=== PATIENT | female | born 2000 | race Caucasian/White ===

== ENCOUNTER 2021-05-22 11:17 | Emergency (ER) | payer OTHER, SELFPAY ==
--- NOTE | ~2021-05-22 | CT_ITS ---
EXAMINATION: CT abdomen pelvis wo con DATE: 05/22/2021 13:46 INDICATION: Hematuria. Dysuria. TECHNIQUE: Computed tomography (CT) of the abdomen and pelvis was performed without intravenous contr ast. Automated exposure control and iterative reconstruction technique were employed. The dose-length product was 236.50 mGy-cm. COMPARISON: None. FINDINGS: The visualized portions of the lung bases are clear without pneumonia or pleural effusion. The heart size is normal. No pericardial effusion. The liver, spleen, pancreas, adrenal glands, and k idneys are normal. There is no urolithiasis. There is an intrauterine device in expected position. Th ere is a dominant follicle in right ovary. There are no dilated loops of bowel. The appendix is marilu l. There are no pathologically enlarged lymph nodes. There is no free intraperitoneal fluid. The bone s are unremarkable. IMPRESSION: 1. No urolithiasis. Reviewed, dictated and finalized at location B. IMPRESSION: 1. No urolithiasis.
[2021-05-22 11:47] VITALS: BP 133/77; PULSE 90; RESP 16; TEMP 37; O2SAT 100
[2021-05-22 12:03] LABS: Basophils Absolute Auto 0.1 K/mm3 (0.0-0.1); Basophils Percent Auto 0.5 % (0.2-1.2); Eosinophils Absolute Auto 0.1 K/mm3 (0-0.3); Eosinophils Percent Auto 0.9 % (0-4.4); Hematocrit 41.3 % (37.0-47.0); Hemoglobin 13.3 g/dL (12.0-15.0); Immature Granulocyte Absolute 0.02 K/mm3 (0.00-0.031); Immature Granulocyte Percent A 0.2 % (0-0.5); Lymphocytes Absolute Auto 2.22 K/mm3 (0.9-3.2); Lymphocytes Percent Auto 24.2 % (18.3-44.2); Mean Corpuscular HGB Conc 32.2 g/dl (32-36); Mean Corpuscular Hemoglobin 27.1 pg (26-34); Mean Corpuscular Volume 84.3 fl (80-100); Mean Platelet Volume 9.3 fl (7.4-10.4); Monocytes Absolute Auto 0.6 K/mm3 (0.1-0.6); Monocytes Percent Auto 6.8 % (2.6-8.5); Neutrophils Absolute Auto 6.2 K/mm3 (1.3-6.7); Neutrophils Percent Auto 67.4 % (45.5-73.1); Platelet Count Result 211 k/mm3 (150-375); Red Cell Distribution Width 13.5 % (11.5-14.5); White Blood Count 9.2 K/mm3 (4.5-10.0)
[2021-05-22 12:16] LABS: Anion Gap 6 mmol/L (8-16); Blood Urea Nitrogen 11 mg/dL (7-17); Calcium 9.3 mg/dL (8.4-10.2); Carbon Dioxide 24 mmol/L (22-30); Chloride 109 mmol/L (98-107); Estimated CRCL calculation 113 ml/min; Estimated Glomerular Filt Rate > 60; Glucose 85 mg/dL (65-110); Potassium 4.1 mmol/L (3.4-5.0); Sodium 139 mmol/L (137-145)
[2021-05-22 12:59] LABS: Add Urine Microscopic? YES; Appearance Urine Cloudy (Clear); Bilirubin Urine Negative (Negative); Blood Urine 2+ (Negative); Color Urine Yellow (Yellow); Glucose Urine UA Negative (Negative); Ketones Urine Negative (Negative); Leukocyte Esterase Ur 3+ LEU/UL (Negative); Nitrate Urine Negative (Negative); Protein Urine Negative (Negative); Urobilinogen Urine Negative mg/dL (<2.0); WBC Urine 0-3 /hpf
--- NOTE | 2021-05-22 13:45 | ED.FEMALEGU ---
HPI - Female Genitourinary General Chief complaint: Urogenital-Female Stated complaint: back pain/headache/urinary stymptoms Time Seen by Provider: 05/22/21 12:45 Source: patient Mode of arrival: ambulatory Limitations: no limitations History of Present Illness HPI Narrative: This is a 21-year-old female that presents to the emergency department for flank pain present since yesterday. Associated with pressure in her bladder and urinary frequency. Also reports a mild headache. Denies fever, stiff neck, abdominal pain, vomiting, or hematuria. Related Data Allergies Allergy/AdvReac Type Severity Reaction Status Date / Time amoxicillin [From Augmentin] Allergy Unknown Verified 05/22/21 12:44 clavulanic acid Allergy Unknown Verified 05/22/21 12:44 [From Augmentin] Review of Systems Review of Systems: CONSTITUTIONAL: Denies fever GASTROINTESTINAL: Denies abdominal pain, nausea, vomiting GENITOURINARY: Denies dysuria or hematuria. MUSCULOSKELETAL: Reports back pain, joint pain, and myalgia. NEUROLOGIC: Reports headache. Denies numbness, or weakness. All systems reviewed & are unremarkable except as noted in HPI and below PMFSH Past Medical History Medical History (Updated 05/22/21 @ 15:54 by Goldie Ham PA-C) No active medical problems Social History Social History (Updated 05/22/21 @ 13:48 by Goldie Ham PA-C) Substance use: never Exam Narrative: GENERAL: Well-appearing, well-nourished, and in no acute distress. HEAD: Normocephalic, atraumatic. EYES: EOMI. ENT: Nares clear, no rhinorrhea or epistaxis. Mucous membranes moist. Oropharynx without tonsillar hypertrophy exudate or other lesions. Bilateral TMs pearly peck non-bulging NECK: Supple. No adenopathy or masses. CHEST: Clear to auscultation. No respiratory distress. No wheezes rales or rhonchi HEART: Regular rate and rhythm. No murmur heard. Normal peripheral pulses. ABDOMEN: Soft, nontender, nondistended, normal active bowel sounds. No CVA tenderness EXTREMITIES: Normal range of motion. No edema. SKIN: Warm, dry, no rash. NEURO: No focal deficits. Alert and oriented x3. PSYCH: Normal mood and affect Course Vital Signs Vital signs: Vital Signs Temperature 98.6 F 05/22/21 11:47 Pulse Rate 90 05/22/21 11:47 Respiratory Rate 16 05/22/21 11:47 Blood Pressure 133/77 05/22/21 11:47 Pulse Oximetry 100 05/22/21 11:47 Temperature 98.6 F 05/22/21 11:47 Pulse Rate 90 05/22/21 11:47 Respiratory Rate 16 05/22/21 11:47 Blood Pressure 133/77 05/22/21 11:47 Pulse Oximetry 100 05/22/21 11:47 MDM - Female Genitourinary MDM Narrative Medical decision making narrative: This is a 21-year-old female that presents the emergency department for flank pain and urinary frequency. She is afebrile and nontoxic-appearing. CBC is without leukocytosis. Metabolic panel without concerning findings. UA does show 3+ leuk esterase, but no white blood cells. This will be sent for culture. Bedside test is negative. CT scan abdomen pelvis is without evidence of urolithiasis or acute intra-abdominal/pelvic process. Patient and family updated on case findings. She is to follow-up with primary care doctor. She was given warnings to return to the ER Lab Data Attestation: I reviewed the patient's lab results. Result diagrams: 05/22/21 11:53 05/22/21 11:53 Labs: Lab Results 05/22/21 05/22/21 05/22/21 Range/Units 11:53 11:53 12:19 WBC 9.2 (4.5-10.0) K/mm3 RBC 4.90 (4.2-5.4) M/mm3 Hgb 13.3 (12.0-15.0) g/dL Hct 41.3 (37.0-47.0) % MCV 84.3 (80-100) fl MCH 27.1 (26-34) pg MCHC 32.2 (32-36) g/dl RDW 13.5 (11.5-14.5) % Plt Count 211 (150-375) k/mm3 MPV 9.3 (7.4-10.4) fl Immature Gran % (Auto) 0.2 (0-0.5) % Neut % (Auto) 67.4 (45.5-73.1) % Lymph % (Auto) 24.2 (18.3-44.2) % [place] % (Auto) 6.8 (2.6-8.5) % Eos % (Auto) 0.9
[2021-05-22] MEDS: SODIUM CHLORIDE 0.9% IV 500 ML 999 ML IV CONT (13:57)
== END 2021-05-22 16:05 | disposition home or self-care (01) ==
PROVIDERS: Emergency Provider Emergency Medicine
DX: R35.0 Frequency of micturition (principal)
CPT/HCPCS: 36415; 74176; 80048; 81001; 81025; 85025; 87077; 87086; 87088; 87186; 96361; 96365; 99284; J0131; J7040

== ENCOUNTER 2024-01-14 10:54 | Outpatient (CLI) | payer OTHER, SELFPAY ==
--- NOTE | 2024-01-14 11:27 | PC.NURSE ---
Dr Earl on unit, tracing, labs and BP reviewed. Orders for [place] and tylenol. OK to dc home if better.
[2024-01-14 11:29] LABS: Basophils Percent Auto 0.2 % (0.2-1.2); Eosinophils Percent Auto 0.4 % (0-4.4); Hematocrit 36.3 % (37.0-47.0); Hemoglobin 11.9 g/dL (12.0-15.0); Immature Granulocyte Absolute 0.05 K/mm3 (0.00-0.031); Immature Granulocyte Percent A 0.5 % (0-0.5); Lymphocytes Absolute Auto 2.13 K/mm3 (0.9-3.2); Mean Corpuscular HGB Conc 32.8 g/dl (32-36); Mean Corpuscular Volume 85.4 fl (80-100); Mean Platelet Volume 10.1 fl (7.4-10.4); Monocytes Absolute Auto 0.6 K/mm3 (0.1-0.6); Monocytes Percent Auto 5.4 % (2.6-8.5); Neutrophils Absolute Auto 7.8 K/mm3 (1.3-6.7); Neutrophils Percent Auto 73.5 % (45.5-73.1); Platelet Count Result 204 k/mm3 (150-375); Red Blood Count 4.25 M/mm3 (4.2-5.4); Red Cell Distribution Width 14.2 % (11.5-14.5); White Blood Count 10.7 K/mm3 (4.5-10.0)
[2024-01-14 11:31] VITALS: BP 114/72; PULSE 121
[2024-01-14 11:34] LABS: Creatinine Urine 100.7 mg/dL; Total Protein Urine Random 12 mg/dL; Ur Ttl Prot Creatinine Ratio 0.12 mg/mg (0-0.20)
[2024-01-14 11:40] LABS: Alanine Aminotransferase 16 U/L (6-35); Albumin Level 4.1 g/dL (3.5-5.1); Alkaline Phosphatase 249 U/L (38-126); Anion Gap 10 mmol/L (4-12); Aspartate Amino Transferase 18 U/L (14-36); Bilirubin,Total 0.5 mg/dL (0.2-1.3); Blood Urea Nitrogen 5 mg/dL (7-17); Carbon Dioxide 18 mmol/L (22-30); Chloride 108 mmol/L (98-107); Estimated Glomerular Filt Rate > 60; Glucose 98 mg/dL (65-110); Potassium 3.8 mmol/L (3.4-5.0); Sodium 136 mmol/L (137-145); Uric Acid 5.6 mg/dL (2.5-7.5)
--- NOTE | 2024-01-14 11:45 | PC.NURSE ---
Plan of care discussed with patient, informed of order for [place] and tylenol. Patient declining [place] and state she will just take tylenol at home. Patient confortable with being discharged home and returning if symptom get worse or for her scheduled IOL on tuesday.
[2024-01-14 11:46] VITALS: BP 105/76; PULSE 124
[2024-01-14 11:51] VITALS: BP 114/72; PULSE 121
[2024-01-14 11:54] LABS: Appearance Urine Cloudy (Clear); Bacteria Urine 3+ /hpf; Bilirubin Urine Negative (Negative); Blood Urine Negative (Negative); Color Urine Yellow (Yellow); Glucose Urine UA Negative (Negative); Ketones Urine Trace mg/dL (Negative); Leukocyte Esterase Ur 3+ LEU/UL (Negative); Need Manual Microscopic Reviewed; Nitrate Urine Negative (Negative); Non Pathogenic Casts 0-2; Protein Urine Negative (Negative); Specific Grav Ur 1.013 (1.001-1.035); Squamous Epithelial Cell Urine Many /hpf (Few); Urobilinogen Urine 0.2 mg/dL (<2.0); WBC Urine 21-50 /hpf (0-3); pH Urine 7.5 (5.0-9.0)
[2024-01-14 12:09] LABS: Add Urine Microscopic? YES
--- NOTE | 2024-01-14 13:01 | PC.NURSE ---
Dr Earl notified of contractions and negative ROM plus. Orders received.
== END 2024-01-14 11:51 | disposition home or self-care (01) ==
LOC: ANHOBOP 11:01 → ANHOBPP 11:02
PROVIDERS: Obstetrics & Gynecology Gynecology; Visit Provider Obstetrics & Gynecology
DX: O13.9 Gestational [pregnancy-induced] hypertension without significant proteinuria, unspecified trimester (principal)
CPT/HCPCS: 36415; 59025; 80053; 81001; 82570; 84156; 84550; 85025; 87086; 87088; 99199

== ENCOUNTER 2024-01-17 04:39 | Inpatient (IN) | payer OTHER, MEDICAID, SELFPAY ==
[2024-01-17] VITALS (131 sets, daily range): BP systolic 69–147; BP diastolic 29–111; PULSE 77–179; RESP 16; TEMP 36.1–37.4; O2SAT 83–100
[2024-01-17 06:17] LABS: Basophils Percent Auto 0.3 % (0.2-1.2); Eosinophils Percent Auto 0.3 % (0-4.4); Hematocrit 34.7 % (37.0-47.0); Hemoglobin 11.4 g/dL (12.0-15.0); Immature Granulocyte Absolute 0.06 K/mm3 (0.00-0.031); Immature Granulocyte Percent A 0.5 % (0-0.5); Lymphocytes Absolute Auto 2.36 K/mm3 (0.9-3.2); Lymphocytes Percent Auto 21.6 % (18.3-44.2); Mean Corpuscular HGB Conc 32.9 g/dl (32-36); Mean Corpuscular Volume 85.3 fl (80-100); Mean Platelet Volume 10.1 fl (7.4-10.4); Monocytes Absolute Auto 0.8 K/mm3 (0.1-0.6); Monocytes Percent Auto 6.9 % (2.6-8.5); Neutrophils Absolute Auto 7.7 K/mm3 (1.3-6.7); Neutrophils Percent Auto 70.4 % (45.5-73.1); Platelet Count Result 184 k/mm3 (150-375); Red Blood Count 4.07 M/mm3 (4.2-5.4); Red Cell Distribution Width 14.3 % (11.5-14.5); White Blood Count 10.9 K/mm3 (4.5-10.0)
[2024-01-17] MEDS: LACTATED RINGERS 1,000 ML 125 ML IV CONT ×2 (06:23→14:10)
[2024-01-17] MEDS: OXYTOCIN 30 UNITS/NS 500 ML 30 UNITS/500 ML BAG 6 UNITS IV CONT (06:24)
[2024-01-17] MEDS: ACETAMINOPHEN 500 MG TABLET 1000 MG PO (07:45)
--- NOTE | 2024-01-17 08:44 | PM.IMHP ---
H&P: HPI History of Present Illness Date/Time: 01/17/24 08:44 Chief Complaint: Here for induction of labor. Narrative: 23 y/o G1 at 39 3/7 weeks here for scheduled induction of labor. GBS neg. Review of Systems Review of Systems: All systems reviewed & are unremarkable except as noted in HPI and below PMFSH Past Medical History Medical History Anxiety Encounter for insertion of progestin-releasing intrauterine contraceptive device (IUD) Encounter for removal of intrauterine contraceptive device No active medical problems Surgical History Surgical History H/O eye surgery tear duct recontruction H/O gynecological procedure 03/16/23 removal of IUD Family History Family History Mother Breast cancer Social History Social History Smoking status: Never smoker Alcohol intake: never Substance use: never Lack of Transportation: No Lack of Food: Never True Current Housing: I Have Housing Concerned About Future Housing: No Difficulty Paying Gas/Electric Bills: No Difficulty Paying for Meds: No Currently Unemployed: No Education: Associate Degree Difficulty w/ Childcare or Family Care: No Living arrangements: other Additional living arrangements comments: spouse Occupation/Education: student Gender identity (if verbalized by the patient): Female Sexual Orientation (if Verbalized by the Patient): Straight or Heterosexual Spiritual care concerns: No Meds Home Medications and Allergies Home Medications Medication Instructions Recorded Confirmed Type metoclopramide HCl 5 mg tablet 5 mg PO DAILY #30 tabs 06/02/23 01/17/24 Rx (Reglan) Allergies Allergy/AdvReac Type Severity Reaction Status Date / Time amoxicillin [From Augmentin] Allergy Intermediate Rash Verified 12/29/23 12:22 clavulanic acid Allergy Intermediate Rash Verified 12/29/23 12:22 [From Augmentin] Vital Signs Vital Signs - 24 hr 01/17/24 06:30 01/17/24 07:00 01/17/24 07:30 Temperature 36.6 C Pulse Rate 97 111 H 109 H Blood Pressure 109/71 106/56 L 100/62 01/17/24 08:00 Temperature Pulse Rate 103 H Blood Pressure 100/53 L Exam Const: Orientation/consciousness: patient oriented x3 Other: Well-developed, well-nourished female in no acute distress. Neck: Thyroid: thyroid normal Lymphatic: no lymphadenopathy noted (in neck, axilla or inguinal nodes) Resp: Effort & Inspection: normal respiratory effort Auscultation: clear to auscultation bilaterally Cardio: Rate: regular rate Rhythm: regular rhythm Heart sounds: S1 normal heart sound present and S2 normal heart sound present GI: Other: ABD: Soft, nontender, nondistended, gravid. NST reactive. TOCO: irregular contractions. No guarding or rebound tenderness. No hepatosplenomegaly. : General: Yes no CVA tenderness Other: Cervix 4/50/-2. AROM with clear fluid. IUPC placed. Vertex. Back/Spine/Pelvis: Back: no CVA tenderness Skin: General skin exam: normal color and no rashes or lesions noted Neuro: General: patient oriented x3 Extrem: Other: Extremities: nontender with no edema Psych: Mental Status: mental status grossly normal Affect: normal affect H&P: Results Labs Labs: Short CBC 01/17/24 Range/Units 04:56 WBC 10.9 H (4.5-10.0) K/mm3 Hgb 11.4 L (12.0-15.0) g/dL Hct 34.7 L (37.0-47.0) % Plt Count 184 (150-375) k/mm3 Assessment and Plan Assessment and plan (1) Term : Code(s): Z34.90 - Encounter for supervision of normal , unspecified, unspecified trimester Status: Acute Assessment and Plan: A: IUP at 39 3/7 weeks here desiring induction of labor. P: Oxytocin. Anticipate .
--- NOTE | 2024-01-17 10:38 | WPDANESEPP ---
Anes - Eval Pre Procedure Procedure: labor Epidural Date/Time: 01/17/24 10:38 Surgeon: Ivana Preop Diagnosis: Pain during labor Pre Op Diagnosis: IOL Patient Data Age: 23 Gender: F Height: Weight: Last Vital Signs Temp 36.2 C L 01/17/24 09:30 Pulse 111 H 01/17/24 10:30 BP 102/60 01/17/24 10:30 Pulse Ox 100 01/17/24 10:34 Allergies Allergy/AdvReac Type Severity Reaction Status Date / Time amoxicillin [From Augmentin] Allergy Intermediate Rash Verified 12/29/23 12:22 clavulanic acid Allergy Intermediate Rash Verified 12/29/23 12:22 [From Augmentin] Home Medications Medication Instructions Recorded Confirmed Type metoclopramide HCl 5 mg tablet 5 mg PO DAILY #30 tabs 06/02/23 01/17/24 Rx (Reglan) Laboratory Tests 01/17/24 04:56 WBC 10.9 H K/mm3 (4.5-10.0) RBC 4.07 L M/mm3 (4.2-5.4) Hgb 11.4 L g/dL (12.0-15.0) Hct 34.7 L % (37.0-47.0) MCV 85.3 fl (80-100) MCH 28.0 pg (26-34) MCHC 32.9 g/dl (32-36) RDW 14.3 % (11.5-14.5) Plt Count 184 k/mm3 (150-375) MPV 10.1 fl (7.4-10.4) Immature Gran % (Auto) 0.5 % (0-0.5) Neut % (Auto) 70.4 % (45.5-73.1) Lymph % (Auto) 21.6 % (18.3-44.2) [place] % (Auto) 6.9 % (2.6-8.5) Eos % (Auto) 0.3 % (0-4.4) Baso % (Auto) 0.3 % (0.2-1.2) Lymph # (Auto) 2.36 K/mm3 (0.9-3.2) [place] # (Auto) 0.8 H K/mm3 (0.1-0.6) Eos # (Auto) 0.0 K/mm3 (0-0.3) Baso # (Auto) 0.0 K/mm3 (0.0-0.1) Abs Immat Gran (auto) 0.06 H K/mm3 (0.00-0.031) Absolute Neuts (auto) 7.7 H K/mm3 (1.3-6.7) Absolute Nucleated RBC 0.000 K/mm3 (0.0-0.012) Nucleated RBC % 0.0 % (0.0-0.2) RPR Pending Blood Type O Positive Antibody Screen Negative Patient hx anesthesia problems: none Family hx anesthesia problems: none Results Review: All pre-operative results and documents have been reviewed as part of the pre-operative evaluation. [facility] Past Medical History Medical History Anxiety Encounter for insertion of progestin-releasing intrauterine contraceptive device (IUD) Encounter for removal of intrauterine contraceptive device No active medical problems Surgical History Surgical History H/O eye surgery tear duct recontruction H/O gynecological procedure 03/16/23 removal of IUD Family History Family History Mother Breast cancer Social History Social History Smoking status: Never smoker Alcohol intake: never Substance use: never Lack of Transportation: No Lack of Food: Never True Current Housing: I Have Housing Concerned About Future Housing: No Difficulty Paying Gas/Electric Bills: No Difficulty Paying for Meds: No Currently Unemployed: No Education: Associate Degree Difficulty w/ Childcare or Family Care: No Living arrangements: other Additional living arrangements comments: spouse Occupation/Education: student Gender identity (if verbalized by the patient): Female Sexual Orientation (if Verbalized by the Patient): Straight or Heterosexual Spiritual care concerns: No Exam Day of Procedure 01/17/24 10:38 Patient weight: obese Heart: regular rate and rhythm Lungs: normal air movement Airway: Mallampati scale class II Neurological: alert and oriented
[2024-01-17] MEDS: PHENYLEPHRINE 1,000 MCG/10 ML SYRINGE 100 MCG IV PUSH (11:12)
--- NOTE | 2024-01-17 12:27 | PM.OBPNLAB ---
Pain Control Date/time seen: 01/17/24 12:27 Comments: Feeling more comfortable with epidural. Pelvic Exam Dilation (cm): 5 Effacement (%): 80 station: -1 Contractions Contraction frequency: 3 Contraction pattern: Regular Status status: Category l Assessment and Plan Comments: Continue labor.
[2024-01-17 13:16] LABS: Rapid Plasma Reagin Non-Reactive (NonReactive)
--- NOTE | 2024-01-17 16:45 | PM.OBPRVD ---
OB - Vaginal Delivery Note Procedure Delivery date: 01/17/24 Induction method: Per Pitocin Protocol Delivery monitor: External FHT, External Uterine and Internal Uterine Route of delivery: Episiotomy description: None Laceration Description: Perineal - 2nd Degree Delivery repair: vicryl (3-0) Specimen: Yes (cord blood) Quantitative Blood Loss (ml): 180 Anesthesia type: Epidural Disposition: PACU Complications: None Narrative: 23 y/o G1 at 39 3/7 weeks gestation who presented to the hospital for induction of labor. Oxytocin was administered intravenously. Amniotomy was performed with return of clear fluid. She received an epidural for pain control. Her labor progressed and her cervix dilated completely. She pushed with good effort and delivered the infant's head to the perineum, followed by the body. The nose and mouth were bulb suctioned. After a delay, the cord was clamped and cut. The was handed off the field. Cord blood was collected. The placenta delivered spontaneously and was grossly normal in appearance. The usual 3 vessel cord was noted. A second degree midline perineal laceration was sustained. This was reapproximated using 3 0 Vicryl in the usual layered fashion. Excellent hemostasis resulted as did excellent reapproximation of the normal anatomy. Needle and instrument counts were correct. The patient was taken to recovery room in stable condition. The infant went to the nursery in stable condition. I was present and scrubbed for the entire delivery. [place] Baby Date of : 01/17/24 Time of : 16:16 Weeks of gestation at delivery: 39 Infant gender: Female presentation: vertex position: Right Occiput Anterior Placenta delivery description: Spontaneous and Normal Configuration Cord Vessel Description: 3 Vessels and Delayed Cord Clamping score one minute: 9 score five minutes: 9
--- NOTE | 2024-01-17 16:46 | PM.OBDSVD ---
DS: Admitting Diagnosis Discharge Date 01/19/24 Admitting Diagnosis IUP at 39 3/7 weeks DS: Discharge Diagnosis Discharge Diagnosis (1) (normal spontaneous vaginal delivery): Code(s): O80 - Encounter for full-term uncomplicated delivery Status: Acute OB - DS: Summary OB Procedures : None OB Procedures Intrapartum: Spontaneous Vag Delivery OB Procedures: : None Peripartum Data Laceration Description: Perineal - 2nd Degree Episiotomy description: None Time Spent with Patient Time attestation: Total time spent providing and/or coordinating discharge services: DS: Data Data Completed and Pending Labs on day of discharge: Labs from last 24 hours 01/17/24 04:56 WBC 10.9 H RBC 4.07 L Hgb 11.4 L Hct 34.7 L MCV 85.3 MCH 28.0 MCHC 32.9 RDW 14.3 Plt Count 184 MPV 10.1 Immature Gran % (Auto) 0.5 Neut % (Auto) 70.4 Lymph % (Auto) 21.6 [place] % (Auto) 6.9 Eos % (Auto) 0.3 Baso % (Auto) 0.3 Lymph # (Auto) 2.36 [place] # (Auto) 0.8 H Eos # (Auto) 0.0 Baso # (Auto) 0.0 Abs Immat Gran (auto) 0.06 H Absolute Neuts (auto) 7.7 H Absolute Nucleated RBC 0.000 Nucleated RBC % 0.0 RPR Non-reactive Blood Type O Positive Antibody Screen Negative Discharge Plan Discharge Attending physician on discharge: Krishan Heath Discharging Clinician: Krishan Heath Patient Disposition: Home, Self-Care Activity: pelvic rest Diet: regular Discharge Instructions: Call or return if temperature above 100.4? F, increased abdominal pain, increased vaginal bleeding or any new problems. Stand Alone Forms: General Discharge Information Follow-up/Referrals: Krishan Heath MD [Physician] - 6 Weeks Discharge Medications: New ibuprofen 600 mg tablet 600 mg PO Q6H PRN (Reason: cramps) Qty: 30 0RF Discontinued metoclopramide HCl [Reglan] 5 mg tablet 5 mg PO DAILY Qty: 30 1RF Date of admission: 01/17/24 04:39 Primary Care Provider: UNKNOWN,DOCTOR Admitting Provider: Krishan Heath Attending physician on admission: Krishan Heath Condition: Stable
[2024-01-17] MEDS: OXYTOCIN 30 UNITS/NS 500 ML 30 UNITS/500 ML BAG 125 UNITS IV CONT (16:49)
[2024-01-17] MEDS: ACETAMINOPHEN 325 MG TABLET 650 MG PO (17:42)
[2024-01-17] MEDS: BENZOCAINE 20% AER SPR (*SP) 56 GM CAN 1 SPRAY TOPICAL (18:49)
[2024-01-17] MEDS: WITCH HAZEL 40 PADS 1 PAD TOPICAL (18:49)
--- NOTE | 2024-01-17 19:17 | PC.NURSE ---
Patient transferred to post room #291 via wheelchair. Support person present. Oriented to unit, room, information board, rooming in, admission packet and security measures. Patient verbalizes understanding.
[2024-01-17] MEDS: IBUPROFEN 600 MG TABLET PO (19:55)
[2024-01-17] MEDS: buPROPion HCL XL (24 HR) 150 MG TABCR PO (19:59)
[2024-01-18 00:17] VITALS: BP 119/80; PULSE 89; RESP 18; TEMP 36.7; O2SAT 100
[2024-01-18] MEDS: IBUPROFEN 600 MG TABLET PO ×3 (04:31→17:19)
[2024-01-18] MEDS: ACETAMINOPHEN 325 MG TABLET 650 MG PO ×3 (04:31→17:20)
[2024-01-18 05:42] LABS: Hematocrit 32.7 % (37.0-47.0); Hemoglobin 10.3 g/dL (12.0-15.0)
[2024-01-18] MEDS: DOCUSATE SODIUM 100 MG CAPSULE PO ×2 (07:34→17:18)
[2024-01-18] MEDS: MULTIVIT/MIN/PREN/FOL AC/IRON TABLET 1 TAB PO (07:34)
--- NOTE | 2024-01-18 07:49 | WPDANLDPN2 ---
Anes-Prog Note L&D Date/Time: 01/18/24 07:49 Comfortable throughout: labor and delivery Neuraxial method: epidural Epidural/Spinal procedure site: clean & non-tender Neuro status: Neuro function grossly intact. Cardiovascular status: normal Respiratory status: normal Airway patency: baseline Mental status: baseline Post-Op hydration status: normal Vital Signs: Last Vital Signs Temp 98.1 F 01/18/24 00:17 Pulse 89 01/18/24 00:17 Resp 18 01/18/24 00:17 BP 119/80 01/18/24 00:17 Pulse Ox 100 01/18/24 00:17 O2 Del Method Room Air 01/17/24 19:45 Pain score (VAS): 0/10 I/O: Intake & Output 01/17/24 01/17/24 01/18/24 15:59 23:59 07:59 Intake Total 972.9 945.8 100 Output Total 180 Balance 972.9 765.8 100 Post-procedural complaints: none Patient feedback: Patient satisfied with anesthetic care. One sided post set up but no tie to replace due to precipitous labor
[2024-01-18 08:11] VITALS: BP 119/72; PULSE 79; RESP 20; TEMP 36.5; O2SAT 95
--- NOTE | 2024-01-18 09:43 | PC.NURSE ---
On 01/18/24, the student, Latasha Hillman, provided care and completed [facility] documentation on this patient. I have reviewed the student's documentation and agree with the findings.
--- NOTE | 2024-01-18 13:48 | PC.NURSE ---
[id number] Introductions were made, then consulted with patient to assess needs related to . Mother led the conversation with her?plans to feed?her infant and the?experience so far. Encouraged understanding of the benefits of skin to skin (demonstrating unwrapping and placing upright on her chest), stimulating with massage touch, changing positions to encourage wakefulness, how to watch for early feeding cues, responsive feeding, feeding on demand (aiming for 8-12 times in 24 hours, about every 2-3 hours), milk production, hand expression, building/maintaining a milk supply, duration of feeding, signs of adequate intake/output and how to record on the feeding sheet. Mother works well with her infant with encouragement and education. Reviewed positioning and ear, shoulder, hip alignment, supporting the breast to facilitate a deep latch, asymmetrical latch (off-center), leading with the chin with a big, open, wide gape and body close to mother. latched optimally to the left breast in football position, however; doesn't maintain at this feeding session. placed [id number], reviewed the feeding cues for responsive feeding, feeding signs visualized and infant is brought to the right breast using the football position. Education given to the mother of how to visualize the suckling (with good rocking jaw motion), swallows (dropping of the lower jaw) and how to listen for drinking at the breast (the ka sound) which demonstrated. Infant was able to maintain latch without pain to mother protecting the nipple with optimal positioning and latching. Reviewed comfort measures of healing with a warm, wet washcloth to rinse breast, then leave open to air-dry, good handwashing when or touching the breast/nipples to prevent infection. Mother voiced understanding of skin to skin, stimulating with massage touch, responsive feedings, hand expressed colostrum, talking to to encourage if it has been 2 -2.5 hours since the start of the last , to call if does not latch, or if there is discomfort with . Resources used for education were facilitated with the visual educational handouts/ tool/mom and baby guide. Inpatient/outpatient resources provided with feeding sheet, name written on the communication board, and the mom/baby guide. Parents voiced understanding of information, demonstrated learning and will call if there is a request for assistance.
--- NOTE | 2024-01-18 17:03 | PM.OBPNVD ---
OB - PN: Subj Subjective Date/time seen: 01/18/24 17:03 Narrative: Pain OK. OB - PN: Obj Data Labs 01/18/24 04:30 Labs: Laboratory Results - last 24 hr 01/18/24 04:30 Hgb 10.3 L Hct 32.7 L OB - PN A/P Plan day: 1 Comments: A: PPD#1, doing well. P: Routine care. Exam Psych: Other: AVSS ABD soft, nontender, fundus firm EXT nontender
[2024-01-18] MEDS: buPROPion HCL XL (24 HR) 150 MG TABCR PO (20:32)
[2024-01-18 21:56] VITALS: BP 123/67; PULSE 76; RESP 18; TEMP 36.4; O2SAT 100
[2024-01-19] MEDS: IBUPROFEN 600 MG TABLET PO (07:09)
[2024-01-19] MEDS: DOCUSATE SODIUM 100 MG CAPSULE PO (07:09)
[2024-01-19] MEDS: MULTIVIT/MIN/PREN/FOL AC/IRON TABLET 1 TAB PO (07:09)
[2024-01-19] MEDS: ACETAMINOPHEN 325 MG TABLET 650 MG PO (07:10)
--- NOTE | 2024-01-19 07:27 | PM.OBPNVD ---
OB - PN: Subj Subjective Date/time seen: 01/19/24 07:27 Narrative: Pain OK. Would like to go home. OB - PN: Obj Data Labs 01/18/24 04:30 OB - PN A/P Plan Comments: A: PPD#2, doing well. P: Home to f/u 6 weeks. Exam Psych: Other: AVSS ABD soft, nontender, fundus firm EXT nontender
[2024-01-19 08:35] VITALS: BP 121/75; PULSE 107; RESP 18; TEMP 37.2; O2SAT 99
--- NOTE | 2024-01-19 11:56 | PC.NURSE ---
[id number] Purposefully rounded to assess for needs as it is reported that last breastfed at midnight, there was an attempt around 0300 and no other feeding known. Primary RN checked the blood sugar and it resulted at 60mg/dl. was taken and placed [id number] on mother, however; demonstrating late feeding cues. An attempt was made to hand express colostrum and there was none visualized. Mother is upset because her has not eaten in 8 hours. Father shared that the wasn't interested in eating last night. Reviewed protecting the milk supply with effective 8-12 times in 24 hours feeding on demand to not go over 5 hours without removing the breast milk to protect the milk supply. Pumping when infant receives a bottle and doesn't breastfeed. Reminded mother of the milk production, how to watch for swallowing, feeding on demand and waking to encourage every 2-3 hours only going 4-5 hours one time in a 24 hour time period. Mother plans to combination feed her infant so, RN LC demonstrated paced bottle feeding to the parents with formula giving infant 10 mls, then calmed and latched optimally to the right breast using cross cradle positioning. Reviewed with parents expectations for feeding infant in the first few days, when to call the OB or Compounding Technician using the mom/baby guide and feeding sheet. resources provided for inpatient/outpatient. Primary RN reported that formula bottle fed another 10mls after a 13 minute session.
[2024-01-20 09:11] VITALS: BP 124/71; PULSE 99; RESP 18; TEMP 36.7; O2SAT 100
== END 2024-01-19 09:50 | disposition home or self-care (01) | DRG 807 ==
LOC: ANHLDR 16:47 → ANHOB2 19:24
PROVIDERS: Admitting Provider Obstetrics & Gynecology; Visit Provider Obstetrics & Gynecology
DX: O69.81X0 Labor and delivery complicated by cord around neck, without compression, not applicable or unspecified (principal); Z37.0 Single live birth; O70.1 Second degree perineal laceration during delivery; Z3A.39 39 weeks gestation of pregnancy
CPT/HCPCS: 36415; 59025; 80053; 81001; 82570; 84156; 84550; 85014; 85018; 85025; 86592; 86850; 86900; 86901; 87086; 99199; A9270; J2371; J2590; J2795; J7120

== ENCOUNTER 2025-08-23 11:08 | Outpatient (CLI) | payer OTHER, SELFPAY ==
[2025-08-23 11:51] LABS: Hematocrit 40.3 % (37.0-47.0); Hemoglobin 13.6 g/dL (12.0-15.0); Mean Corpuscular HGB Conc 33.7 g/dl (32-36); Mean Corpuscular Hemoglobin 29.1 pg (26-34); Mean Corpuscular Volume 86.3 fl (80-100); Platelet Count Result 237 k/mm3 (150-375); Red Blood Count 4.67 M/mm3 (4.2-5.4); White Blood Count 8.2 K/mm3 (4.5-10.0)
[2025-08-23 11:56] LABS: Add Urine Microscopic? YES; Appearance Urine Clear (Clear); Glucose Urine UA Negative (Negative); Leukocyte Esterase Ur 2+ LEU/UL (Negative); Nitrate Urine Negative (Negative); Non Pathogenic Casts 0-2; Specific Grav Ur 1.011 (1.001-1.035)
[2025-08-23 12:32] LABS: Syphilis IgG/IgM Antibody Non-Reactive (Nonreactive)
[2025-08-23 12:34] LABS: Thyroid Stimulating Hormone 1.400 uIU/mL (0.465-4.680)
[2025-08-23 12:37] LABS: Hepatitis B Surface Antigen Negative (Negative)
[2025-08-23 12:45] LABS: HIV 1/2 Ab P24 Ag Result Negative (Negative)
[2025-08-24 07:09] LABS: Varicella-Zoster Ab, IgG Reactive (Non Reactive)
== END 2025-08-23 11:09 | disposition home or self-care (01) ==
LOC: ANHLAB 11:10
PROVIDERS: PCP Nurse Practitioner Family; Visit Provider Nurse Practitioner Obstetrics & Gynecology
DX: Z34.90 Encounter for supervision of normal pregnancy, unspecified, unspecified trimester (principal); Z3A.00 Weeks of gestation of pregnancy not specified
CPT/HCPCS: 36415; 81001; 84443; 85027; 85660; 86593; 86703; 86762; 86787; 86803; 86850; 86900; 86901; 87086; 87340; G0432